=== PATIENT | female | born 1970 | race Two or more races ===

== ENCOUNTER → 2019-01-23 | Outpatient (CLI) | payer BC, OTHER ==
[~2019-01-23] MED LIST: ESOM40CA39 PO; FOLI1TAB51 PO; TOPI100T29 PO
== END | disposition home or self-care (01) ==
LOC: Rad HDHVI 09:23
PROVIDERS: ATTEND Internal Medicine
DX: R06.02 Shortness of breath (principal)
CPT/HCPCS: 71046

== ENCOUNTER → 2019-02-08 | Outpatient (CLI) | payer OTHER ==
[~2019-02-08] MED LIST changes: +IOHEXOL 350 MG/ML 100ML IJ ONE
[2019-02-08 09:00] VITALS: BP 131/73
[2019-02-08 09:37] VITALS: BP 133/76
--- NOTE | 2019-02-08 09:37 | NUR ---
IN FOR CT HEAD AND NECK FOR DIZZINESS. IV insertion IV access obtained, via clean sterile technique by inserting 20 gauge catheter at after [1) attempt(s). IV secured properly. No trauma to site. Patient tolerated procedure well. IV SITE USED FOR CT SCAN AND SITE REMAINS BENIGN POST USE. TOLERATED PROCEDURE WELL. IV DCD. DISCHARGED TO SELF CARE IN NO DISTRESS. VS WNL.
[2019-02-08 12:06] LABS: Basophils # (auto) 0.1 uL; Eosinophils # (auto) 0.2 uL; Hematocrit 43.9 % (36.0-46.0); Hemoglobin 14.5 g/dL (12.2-16.2); Lymphocytes # (auto) 1.8 uL; Lymphocytes % (auto) 31.3 % (10.0-50.0); Mean Corpuscular Hemoglobin 28.6 pg (28.0-32.0); Mean Corpuscular Volume 86.6 fL (80.0-100.0); Monocytes # (auto) 0.3 uL; Monocytes % (auto) 5.6 % (0.0-12.0); Neutrophils # (auto) 3.4 uL; Neutrophils % (auto) 58.1 % (37.0-80.0); Nucleated Red Blood Cells % 0.1 %; Platelet Count (auto) 248 10^3/uL (140-450); Red Blood Cells 5.07 10^6/uL (4.0-5.20); Red Cell Distribution Width 16.7 % (11.8-14.3); White Blood Cell 5.8 10^3/uL (4.4-10.8)
[2019-02-08 12:07] LABS: Urine Blood Negative /uL (Negative); Urine Specific Gravity 1.024 (1.001-1.035)
[2019-02-08 12:53] LABS: Free T4 (Free Thyroxine) 0.85 ng/dL (0.89-1.76)
[2019-02-08 12:58] LABS: Albumin 3.4 g/dL (3.4-5.0); Chloride 112 mmol/L (98-107); GFR African American 76 mL/min; GFR Non-African American 63 mL/min; Potassium 4.1 mmol/L (3.5-5.1); Sodium 140 mmol/L (136-145)
[2019-02-08 13:08] LABS: Alanine Aminotransferase 22 U/L (13-56); Alkaline Phosphatase 67 U/L (45-117); Anion Gap 7 (5-15); Aspartate Aminotransferase 12 U/L (15-37); BUN/Creatinine Ratio 23.2; Bilirubin, Direct < 0.1 mg/dL (0-0.2); Bilirubin, Total 0.2 mg/dL (0.2-1.0); Blood Urea Nitrogen 23 mg/dL (7-18); Calcium 8.5 mg/dL (8.5-10.1); Carbon Dioxide 21 mmol/L (21-32); Cholesterol 185 mg/dL (< 200); Glucose 101 mg/dL (74-106); HDL Cholesterol 75 mg/dL (40-59); LDL Cholesterol 94 mg/dL (< 100); Total Protein 6.9 g/dL (6.4-8.2); Triglycerides 79 mg/dL (< 150)
== END | disposition home or self-care (01) ==
LOC: Rad HDHVI 08:50
PROVIDERS: ATTEND Internal Medicine
DX: G45.9 Transient cerebral ischemic attack, unspecified (principal); E03.9 Hypothyroidism, unspecified; K90.9 Intestinal malabsorption, unspecified; N39.0 Urinary tract infection, site not specified; D51.9 Vitamin B12 deficiency anemia, unspecified; R42 Dizziness and giddiness; Z79.899 Other long term (current) drug therapy
CPT/HCPCS: 36415; 70496; 80048; 80061; 80076; 81003; 82306; 82607; 83036; 84439; 84443; 85025; G0463; Q9967